=== PATIENT | male | born 1950 | race African-American/Black ===

== ENCOUNTER 2017-04-10 06:08 | Emergency (ER) | payer MEDICAID ==
[~2017-04-10] VITALS: Ht 175.3 cm; Wt 84.0 kg
[2017-04-10 07:00] LABS: PROTHROMBIN TIME 10.7 sec (9.4-11.6)
[2017-04-10 07:02] LABS: BASOPHILS % 0.5 % (0.0-2.0); EOSINOPHILS % 1.6 % (0.0-5.0); HEMATOCRIT. 39.2 % (42.0-52.0); HEMOGLOBIN. 13.2 g/dL (14.0-18.0); LYMPHOCYTES % 25.9 % (20.0-50.0); MEAN CORPUSCULAR HEMOGLOBIN 28.9 pg (28.0-32.0); MEAN CORPUSCULAR VOLUME 85.8 fL (80.0-94.0); MEAN PLATELET VOLUME 7.3 fl (7.4-10.4); MONOCYTES % 9.8 % (2.0-8.0); NEUTROPHILS % 62.2 % (40.0-76.0); PLATELET 269 x1000/uL (130-400); RED BLOOD CELL COUNT 4.57 mill/uL (4.7-6.1); RED CELL DISTRIBUTION WIDTH 13.8 % (11.6-14.6)
[2017-04-10 07:09] LABS: CARBON DIOXIDE 22 mEq/L (21-32); CHLORIDE 106 mEq/L (98-107); ETHANOL BLOOD < 10 mg/dL; TROPONIN I < 0.02 ng/mL (0.00-0.04)
[2017-04-10] MEDS ORDERED: ONDANSETRON HCL 4MG/2ML VIAL IV ONE (07:15)
[2017-04-10] MEDS ORDERED: ASPIRIN 300MG SUPP PR ONE (07:15)
[2017-04-10] MEDS ORDERED: IOHEXOL-350 100 ML BOTTLE ONE (08:25)
[2017-04-10] MEDS ORDERED: CLOPIDOGREL 75MG TABLET PO ONE (08:45)
[2017-04-10 09:34] VITALS: BP 165/84
== END 2017-04-10 09:44 | disposition short-term general hospital (02) ==
LOC: ER 06:08 → CANBEDREQ 08:42 → ER 09:44
DX: I63.9 Cerebral infarction, unspecified (principal); F12.10 Cannabis abuse, uncomplicated; I10 Essential (primary) hypertension
CPT/HCPCS: 36415; 70450; 70496; 70498; 71010; 80053; 84484; 85025; 85610; 93005; 96374; 99291; G0482; J2405; Q9967; Z7610